=== PATIENT | female | born 1950 | race Caucasian/White ===

== ENCOUNTER → 2016-09-30 | Outpatient (CLI) | payer MEDICARE, OTHER ==
[2016-09-30 12:56] LABS: CREATININE 1.3 mg/dL (0.5-1.1)
== END | disposition disaster alternative care site (69) ==
LOC: GRAD 11:53 → GLAB 12:00 → GRAD 12:00
PROVIDERS: Family Medicine
DX: M25.512 Pain in left shoulder (principal); M54.2 Cervicalgia; M54.9 Dorsalgia, unspecified; M43.16 Spondylolisthesis, lumbar region; M47.892 Other spondylosis, cervical region; M47.896 Other spondylosis, lumbar region; M51.24 Other intervertebral disc displacement, thoracic region; Z98.890 Other specified postprocedural states

== ENCOUNTER → 2016-11-10 | Outpatient (CLI) | payer MEDICARE, OTHER | LOC: LGSMG 11:19 | DX: R31.9 Hematuria, unspecified (principal) ==